=== PATIENT | female | born 1975 | race Caucasian/White ===

== ENCOUNTER → 2016-10-31 | Outpatient (CLI) | payer OTHER ==
[~2016-10-31] MED LIST: GADAVIST IV PRN; HYDR-5688 PO; IBUP-103 PO
--- NOTE | 2016-10-31 10:55 | DIAGNOSTIC IMAGING REPORT ---
MRI OF THE BRAIN WITHOUT AND WITH IV CONTRAST CLINICAL HISTORY: CHARCOT ANA TOOTH DISEASE, NEW ONSET MIGRAINUS COMPARISON STUDY: 12/13/2011 TECHNIQUE: Utilizing a 1.5 Yuly magnet and dedicated coil, multiplanar, multiecho imaging of the brain was performed pre and postcontrast administration. IV administration of 8 mL of Gadavist contrast was uneventful. FINDINGS: Mild atrophy over the cerebral convexities. Signal characteristics the cerebellar as well as cerebral hemispheres otherwise are unremarkable rib no evidence for abnormal postcontrast enhancement. Internal auditory canals are symmetric. Sella and parasellar regions are unremarkable. IMPRESSION: Mild atrophy over the cerebral convexities. Otherwise negative MRI brain. Electronically signed by: Jerel So M.D. 10/31/2016 10:54 AM Dictated Date/Time: 10/31/2016 10:50 AM
== END | disposition home or self-care (01) ==
LOC: C.OPENMRI 09:43
PROVIDERS: ATTEND Internal Medicine
DX: G60.0 Hereditary motor and sensory neuropathy (principal); G43.909 Migraine, unspecified, not intractable, without status migrainosus